=== PATIENT | male | born 1995 | race African-American/Black ===

== ENCOUNTER 2025-04-30 08:35 | Emergency (ER) | payer OTHER ==
[~2025-04-30] VITALS: Ht 172.7 cm; Wt 77.0 kg
[2025-04-30] MEDS: PROPARACAINE 0.5% OPHTH SOL 15ML OS ONE (11:25)
[2025-04-30 12:55] VITALS: BP 114/83; TEMP 97.2; O2SAT 98
== END 2025-04-30 12:58 | disposition home or self-care (01) ==
LOC: M ED 08:35
DX: H53.8 Other visual disturbances (principal)